=== PATIENT | male | born 1955 | race Caucasian/White ===

== ENCOUNTER 2021-08-02 06:50 | Day surgery (SDC) | payer MEDICARE ==
[~2021-08-02] VITALS: Ht 175.3 cm; Wt 92.3 kg
[~2021-08-02 06:50] MED LIST: ASPI-1450 PO; EZET10TA57 PO; FINA-27 PO; OMEG1200 PO; PRAS10TA20 PO; ROSU20TA73 PO; SODIUM CHLORIDE 0.9% 1,000 ML ONE; TAMS-13 PO
[2021-08-02] MEDS ORDERED: SODIUM CHLORIDE 0.9% 1,000 ML IV SCH (08:00)
[2021-08-02] MEDS ORDERED: DIAZEPAM 5 MG TABLET ONE (08:01)
[2021-08-02] MEDS ORDERED: DiphenhydrAMINE HCL 50 MG CAPSULE ONE (08:01)
[2021-08-02] MEDS ORDERED: DiphenhydrAMINE HCL 50 MG CAPSULE PO ONE (09:00)
[2021-08-02] MEDS ORDERED: DIAZEPAM 5 MG TABLET PO ONE (09:00)
[2021-08-02] MEDS ORDERED: ASPIRIN 81 MG CHEWABLE TABLET PO ONE (09:00)
[2021-08-02] MEDS ORDERED: IOHEXOL 300 MG/ML 100 ML VIAL ONE (09:49)
[2021-08-02] MEDS ORDERED: IOHEXOL 300 MG/ML 50 ML VIAL ONE (09:49)
[2021-08-02] MEDS ORDERED: LIDOCAINE/PF 1% 30 ML VIAL ONE (09:49)
[2021-08-02] MEDS ORDERED: HEPARIN SODIUM 1000 UNITS/NS 1,000 ML ONE (09:49)
[2021-08-02] MEDS ORDERED: SODIUM BICARBONATE 50 MEQ/50 ML VIAL ONE (09:49)
[2021-08-02] MEDS ORDERED: IOHEXOL 300 MG/ML 150 ML VIAL ONE (09:49)
[2021-08-02 09:54] VITALS: BP 132/68
[2021-08-02] MEDS ORDERED: MIDAZOLAM HCL 2 MG/2 ML VIAL ONE ×2 (09:57→10:15)
[2021-08-02] MEDS ORDERED: FentaNYL CITRATE PF 100 MCG/2 ML VIAL ONE ×2 (09:57→10:15)
[2021-08-02] MEDS ORDERED: HEPARIN SODIUM 1000 UNITS/NS 1,000 ML IARTER ONE (10:15)
[2021-08-02] MEDS ORDERED: MIDAZOLAM HCL 2 MG/2 ML VIAL IVP ONE ×4 (10:15→11:15)
[2021-08-02] MEDS ORDERED: LIDOCAINE 1% 30 ML/SOD BICARB 8.4% 4 ML SQ ONE (10:15)
[2021-08-02] MEDS ORDERED: IOHEXOL 300 MG/ML 150 ML VIAL ICOR ONE (10:15)
[2021-08-02] MEDS ORDERED: FentaNYL CITRATE PF 100 MCG/2 ML VIAL IVP ONE ×4 (10:15→11:15)
[2021-08-02] MEDS ORDERED: TICAGRELOR 90 MG TABLET ONE (10:25)
[2021-08-02] MEDS ORDERED: HEPARIN SODIUM,PORCINE 5,000 UNITS/ML VIAL IVP ONE (10:30)
[2021-08-02] MEDS ORDERED: PRASUGREL HCL 10 MG TABLET PO ONE (10:30)
[2021-08-02] MEDS ORDERED: HEPARIN SODIUM 1000 UNITS/NS 500 ML ONE (10:35)
[2021-08-02] MEDS ORDERED: IOHEXOL 300 MG/ML 50 ML VIAL ICOR ONE (10:45)
[2021-08-02] MEDS ORDERED: IOHEXOL 300 MG/ML 100 ML VIAL ICOR ONE (10:45)
[2021-08-02 11:11] VITALS: BP 139/83
== END 2021-08-02 16:45 | disposition home or self-care (01) ==
LOC: CATHLAB 06:50
PROVIDERS: ATTEND Internal Medicine Interventional Cardiology
DX: R94.39 Abnormal result of other cardiovascular function study (principal); I25.10 Atherosclerotic heart disease of native coronary artery without angina pectoris; T82.855A Stenosis of coronary artery stent, initial encounter; Y83.8 Other surgical procedures as the cause of abnormal reaction of the patient, or of later complication, without mention of misadventure at the time of the procedure; Z95.5 Presence of coronary angioplasty implant and graft; Z87.01 Personal history of pneumonia (recurrent); I10 Essential (primary) hypertension; I25.2 Old myocardial infarction; G47.30 Sleep apnea, unspecified; E66.01 Morbid (severe) obesity due to excess calories; E78.5 Hyperlipidemia, unspecified; Z79.899 Other long term (current) drug therapy; Z98.890 Other specified postprocedural states
CPT/HCPCS: 93005; 93458; 99152; 99153; C1757; C1760; C1874; C1887; C9600; J1644; J2250; J3010; J3490 ×2; J7030; Q9967 ×3; 75960; 92920; 92928

== ENCOUNTER → 2021-12-10 | Day surgery (SDC) | payer MEDICARE ==
[~2021-12-10] VITALS: Ht 175.3 cm; Wt 118.0 kg
[~2021-12-10] MED LIST changes: +ASPIRIN 81 MG CHEWABLE TABLET PO ONE; +DIAZEPAM 5 MG TABLET ONE; +DIAZEPAM 5 MG TABLET PO ONE; +DiphenhydrAMINE HCL 50 MG CAPSULE ONE; +DiphenhydrAMINE HCL 50 MG CAPSULE PO ONE; +FentaNYL CITRATE PF 100 MCG/2 ML VIAL IVP ONE; +FentaNYL CITRATE PF 100 MCG/2 ML VIAL ONE; +HEPARIN SODIUM 1000 UNITS/NS 1,000 ML IARTER ONE; +HEPARIN SODIUM 1000 UNITS/NS 1,000 ML ONE; +IOHEXOL 350 MG/ML 100 ML VIAL IARTER ONE; +IOHEXOL 350 MG/ML 100 ML VIAL ONE; +LIDOCAINE 1% 30 ML/SOD BICARB 8.4% 4 ML SQ ONE; +LIDOCAINE/PF 1% 30 ML VIAL ONE; +MIDAZOLAM HCL 2 MG/2 ML VIAL IVP ONE; +MIDAZOLAM HCL 2 MG/2 ML VIAL ONE; -PRAS10TA20 PO; +PRAS10TA6 PO; +SODIUM BICARBONATE 50 MEQ/50 ML VIAL ONE; +SODIUM CHLORIDE 0.9% 1,000 ML IV ONE
[2021-12-10 08:06] LABS: PROTHROMBIN TIME 10.3 SEC (9.4-11.6)
[2021-12-10 09:51] VITALS: BP 141/70
== END | disposition still patient (30) ==
LOC: CATHLAB 06:33
PROVIDERS: ATTEND Internal Medicine Interventional Cardiology
DX: I25.10 Atherosclerotic heart disease of native coronary artery without angina pectoris (principal); E66.9 Obesity, unspecified; E66.01 Morbid (severe) obesity due to excess calories; E78.5 Hyperlipidemia, unspecified; G47.30 Sleep apnea, unspecified; E11.9 Type 2 diabetes mellitus without complications; I10 Essential (primary) hypertension; I25.2 Old myocardial infarction; Z95.5 Presence of coronary angioplasty implant and graft; Z98.890 Other specified postprocedural states; Z79.899 Other long term (current) drug therapy; Z79.82 Long term (current) use of aspirin
CPT/HCPCS: 93458; 85610; 85730; 36415; 99152; 99153; 93005; C1760; J3010; J1644; J3490 ×2; J2250; Q9967; J7030